=== PATIENT | male | born 1985 | race Caucasian/White ===

== ENCOUNTER 2023-01-07 18:00 | Emergency (ER) | payer OTHER, SELFPAY ==
--- NOTE | ~2023-01-07 | CT_ITS ---
EXAMINATION: CT cervical spine wo con DATE: 01/07/2023 20:17 INDICATION: TECHNIQUE: Computed tomography (CT) of the cervical spine was performed without intravenous contrast. Automated exposure control and iterative reconstruction technique were employed. Exam dose: 489.88 mGy-cm total exam DLP. COMPARISON: None FINDINGS: C1 and C2 are normally aligned and the odontoid process is intact. No fracture or dislocati on or locked facet or prevertebral soft tissue swelling. Cervical interspaces are preserved. IMPRESSION: Negative Reviewed, dictated and finalized at [facility]. Reviewed, dictated and finalized at location [facility]. IMPRESSION: Negative
--- NOTE | ~2023-01-07 | CT_ITS ---
EXAMINATION: CT chst ab pel joaquin gordon w DATE: 01/07/2023 20:19 INDICATION: Fall from ladder TECHNIQUE: Computed tomography (CT) of the chest, abdomen, and pelvis as well as thoracic and lumbar spine was performed without intravenous contrast. Automated exposure control and iterative reconstruc tion technique were employed. Exam dose: 1014.10 mGy-cm total exam DLP. COMPARISON: None FINDINGS: CHEST CT: Normal heart size. No pericardial or pleural effusion. No thoracic aortic aneurysm or dissection. No hilar or mediastinal mass lesion or lymphadenopathy. No pneumomediastinum or pneumothorax. No pulmonary infiltrate or consolidation or pulmonary mass lesion. ABDOMEN/PELVIS CT: The liver, gallbladder, bile ducts, spleen, pancreas, pancreatic duct, and adrenal glands and kidneys are unremarkable. Normal caliber of the abdominal aorta. No intraperitoneal or retroperitoneal or pelvic mass lesion or adenopathy or ascites. Status post appendectomy. Mild sigmoid colon diverticulosis; no CT evidence of diverticulitis. No bow el obstruction, bowel wall thickening, pneumatosis or intraperitoneal free air. No fractures of the chest abdomen and pelvis areas. Normal alignment of the thoracic and lumbar spine , without fracture. No spondylolisthesis. IMPRESSION: Negative Reviewed, dictated and finalized at [facility]. Reviewed, dictated and finalized at [facility]. IMPRESSION: Negative
--- NOTE | ~2023-01-07 | CT_ITS ---
EXAMINATION: CT brain wo con DATE: 01/07/2023 20:17 INDICATION: Fall from ladder TECHNIQUE: Computed tomography (CT) of the head was performed without intravenous contrast. The mA wa s adjusted according to patient size. Iterative reconstruction technique was employed. Exam dose: 60 5.33 mGy-cm total exam DLP. COMPARISON: None FINDINGS: No skull fracture. There is patchy opacification of ethmoid air cells bilaterally. Mucous retention cyst of each sphenoi d sinus. The included paranasal sinuses and mastoid air cells are otherwise unremarkable. No fracture or bone destruction of the cranial vault. There is intracranial mass lesion or hemorrhage or cerebrovascular accident. No midline shift or mass effect. Normal ventricular size. No subdural or epidural hematoma. IMPRESSION: No skull fracture or acute intracranial finding Paranasal sinus disease Reviewed, dictated and finalized at [facility]. Reviewed, dictated and finalized at location [facility].
[2023-01-07 18:37] VITALS: BP 139/99; PULSE 80; RESP 20; TEMP 36.5; O2SAT 97
--- NOTE | 2023-01-07 19:08 | ED.NECK ---
HPI - Neck Pain/Injury General Chief Complaint: Neck Pain/Injury Stated Complaint: neck pain r/t fall Time Seen by Provider: 01/07/23 18:53 Source: patient Mode of arrival: ambulatory Limitations: no limitations History of Present Illness HPI Narrative: This is a 37-year-old male that presents to the emergency department for neck pain after a fall 4 days ago. Reports he fell about 8 feet off of a ladder. Reports landing on his back. Reports since he has had neck, rib pain and back pain. Also reports headaches and vomiting. He does not believe that he hit his head. He did not lose consciousness. Denies vision changes, shortness of breath, abdominal pain, numbness or weakness. Related Data Allergies Allergy/AdvReac Type Severity Reaction Status Date / Time Penicillins Allergy Mild Verified 04/30/16 14:21 Review of Systems Review of Systems: CONSTITUTIONAL: Denies fever EYES: Denies visual changes CARDIOVASCULAR: Reports chest/rib pain RESPIRATORY: Denies dyspnea. GASTROINTESTINAL: Reports vomiting MUSCULOSKELETAL: Reports back pain, joint pain, and myalgia. NEUROLOGIC: Denies numbness, or weakness. All systems reviewed & are unremarkable except as noted in HPI and below PMFSH Past Medical History Medical History (Updated 01/07/23 @ 22:21 by Patricia Olvera PA-C) No active medical problems Social History Social History (Updated 01/07/23 @ 19:11 by Patricia Olvera PA-C) Substance use: never Exam Narrative: GENERAL: Well-appearing, well-nourished, and in no acute distress. HEAD: Normocephalic, atraumatic. EYES: PERRLA and EOMI. ENT: Nares clear, no rhinorrhea or epistaxis. Mucous membranes moist. Oropharynx without tonsillar hypertrophy exudate or other lesions. Bilateral TMs pearly francis non-bulging NECK: Supple. No adenopathy or masses. Tender to palpation of midline cervical spine CHEST: Clear to auscultation. No respiratory distress. No wheezes rales or rhonchi HEART: Regular rate and rhythm. No murmur heard. Normal peripheral pulses. ABDOMEN: Soft, nontender, nondistended, normal active bowel sounds. BACK: Tender to palpation of midline thoracic and lumbar spine EXTREMITIES: Normal range of motion. No edema. Strength equal in bilateral upper and lower extremities (5/5) SKIN: Warm, dry, no rash. NEURO: No focal deficits. Alert and oriented x3. Cranial nerves II through XII grossly intact PSYCH: Normal mood and affect Course Course Emergency Course: Patient was updated on work-up and agrees with plan of care Vital Signs Vital signs: Vital Signs Temperature 97.7 F 01/07/23 18:37 Pulse Rate 80 01/07/23 18:37 Respiratory Rate 20 01/07/23 18:37 Blood Pressure 139/99 H 01/07/23 18:37 Pulse Oximetry 97 01/07/23 18:37 Temperature 97.7 F 01/07/23 18:37 Pulse Rate 80 01/07/23 18:37 Respiratory Rate 20 01/07/23 18:37 Blood Pressure 139/99 H 01/07/23 18:37 Pulse Oximetry 97 01/07/23 18:37 MDM - Neck Pain/Injury MDM Narrative Medical decision making narrative: Patient presents to the emergency department after a fall from a ladder 4 days ago. Reporting neck pain, back pain, and rib pain. Patient is neurologically intact. CBC shows mild normocytic anemia with hemoglobin of 13.6. Metabolic panel without concerning findings. CT brain without acute findings. CT cervical spine without acute changes. CT chest/abdomen/pelvis/thoracic/lumbar spine also without acute findings. Patient was updated on work-up. Instructed on care of muscle strain. He is to follow-up with primary provider. He was given warnings to return to the ER Differential Diagnosis Differential diagnosis: Likely whiplash injury to neck, strain of neck muscle and other (vertebral fracture) Lab Data Attestation: I reviewed the patient's lab results. 01/07/23 19:19 01/07/23 19:19 Labs: Lab Results 01/07/23 Range/Units 19:19 WBC 8.1 (4.5-10.0) K/mm3
[2023-01-07 19:25] LABS: Basophils Percent Auto 0.5 % (0.2-1.2); Eosinophils Absolute Auto 0.5 K/mm3 (0-0.3); Eosinophils Percent Auto 6.7 % (0-4.4); Hematocrit 39.9 % (42.0-52.0); Hemoglobin 13.6 g/dL (14.0-18.0); Immature Granulocyte Absolute 0.02 K/mm3 (0.00-0.031); Immature Granulocyte Percent A 0.2 % (0-0.5); Lymphocytes Absolute Auto 3.83 K/mm3 (0.9-3.2); Lymphocytes Percent Auto 47.2 % (18.3-44.2); Mean Corpuscular HGB Conc 34.1 g/dl (32-36); Mean Corpuscular Hemoglobin 29.2 pg (26-34); Mean Corpuscular Volume 85.8 fl (80-100); Mean Platelet Volume 10.2 fl (7.4-10.4); Monocytes Absolute Auto 0.7 K/mm3 (0.1-0.6); Monocytes Percent Auto 8.1 % (2.6-8.5); Neutrophils Percent Auto 37.3 % (45.5-73.1); Platelet Count Result 307 k/mm3 (150-375); Red Blood Count 4.65 M/mm3 (4.6-6.20); Red Cell Distribution Width 13.2 % (11.5-14.5); White Blood Count 8.1 K/mm3 (4.5-10.0)
[2023-01-07 19:36] LABS: Alanine Aminotransferase 24 U/L (6-50); Albumin Level 4.8 g/dL (3.5-5.1); Alkaline Phosphatase 73 U/L (38-126); Anion Gap 8 mmol/L (8-16); Aspartate Amino Transferase 27 U/L (17-59); Bilirubin,Total 0.4 mg/dL (0.2-1.3); Blood Urea Nitrogen 18 mg/dL (9-20); Calcium 9.6 mg/dL (8.4-10.2); Carbon Dioxide 27 mmol/L (22-30); Chloride 102 mmol/L (98-107); Estimated CRCL calculation 142 ml/min; Estimated Glomerular Filt Rate > 60; Glucose 99 mg/dL (65-110); Potassium 3.9 mmol/L (3.4-5.0); Sodium 137 mmol/L (137-145)
[2023-01-07 19:41] LABS: Prothrombin Time 13.7 Seconds (11.1-14.7)
[2023-01-07 19:42] LABS: Partial Thromboplastin Time 35.2 SECONDS (22.3-36.8)
[2023-01-07 22:36] VITALS: BP 142/83; PULSE 74; RESP 17; O2SAT 100
== END 2023-01-07 22:38 | disposition home or self-care (01) ==
PROVIDERS: Emergency Provider Physician Assistant
DX: S16.1XXA Strain of muscle, fascia and tendon at neck level, initial encounter (principal); J32.9 Chronic sinusitis, unspecified; W11.XXXA Fall on and from ladder, initial encounter
CPT/HCPCS: 36415; 70450; 71260; 72125; 72129; 72132; 74177; 80053; 85025; 85610; 85730; 99284; L0140; Q9967

== ENCOUNTER 2024-02-25 16:29 | Emergency (ER) | payer OTHER, SELFPAY ==
--- NOTE | ~2024-02-25 | CT_ITS ---
CLINICAL INDICATION: Periumbilical pain COMPARISON: 01/07/2023. TECHNIQUE: Multiple contiguous axial images of the abdomen and pelvis were performed following the ad ministration of with 100 mL Omnipaque-350 intravenous contrast The dose-length product (DLP) was 379.67 mGy-cm. Automated exposure control and iterative reconstruction technique were employed. FINDINGS/OBSERVATIONS: Visualized lower thorax: The bilateral lung bases are clear. The heart is of normal size, without pericardial effusion. Small hiatal hernia is present. Liver: The liver is within the upper limits of normal for size measuring 19 cm in longitudinal dimension. Gallbladder and biliary system: The gallbladder is only minimally distended, and otherwise unremarkable. Pancreas: The pancreas enhances homogeneously without ductal dilatation. Spleen: The spleen enhances homogeneously and is within the upper limits of normal for size measuring 11 cm i n longitudinal dimension. Kidneys: The bilateral kidneys enhance symmetrically without hydronephrosis or renal calculi. Adrenal glands: Unremarkable. Gastrointestinal tract: Unremarkable. Appendix: Surgically absent. Vasculature: Unremarkable. No aneurysmal dilatation or significant stenosis. Lymph nodes: No pathologically enlarged or morphologically suspicious lymph nodes within the retroperitoneum or at the root of the mesentery. Pelvic structures: The bladder is distended, and otherwise unremarkable. The prostate gland is not enlarged and enhances heterogeneously. Body wall and musculoskeletal: Small fat-containing umbilical hernia. No significant degenerative disease within the lower thoracic or lumbosacral spine. IMPRESSION: Small fat-containing umbilical hernia Borderline hepatosplenomegaly Reviewed, dictated and finalized at location [facility]. MANAGER
[2024-02-25 16:31] VITALS: BP 137/86; PULSE 88; RESP 18; TEMP 36.4; O2SAT 97
--- NOTE | 2024-02-25 16:31 | ED.ABDPAIN ---
HPI - Abdominal Pain General Chief Complaint: Abdominal Pain <JENNIFER Santoyo Last Filed: 02/25/24 16:40> Stated Complaint: abd pain <JENNIFER Santoyo Last Filed: 02/25/24 16:40> Time Seen by Provider: 02/25/24 16:31 <JENNIFER Santoyo Last Filed: 02/25/24 16:40> Focused HPI: Patient is a 38 y/o male who presents to the ED with c/o periumbilical abd pain. Patient reports having pain fairly constantly over the past 8 days. States pain is significantly worse after eating. Otherwise denies significant aggravating or alleviating factors to the pain. He did try taking omeprazole once, but denied change in the pain. He does have history of acid reflux. Reported having vomiting 1 day of the past week but denies persistent nausea. Denies diarrhea, constipation, fevers, chest pain. GENERAL: Well-appearing, well-nourished, and in no acute distress. HEAD: Normocephalic, atraumatic. CHEST: Clear to auscultation. ?No respiratory distress. HEART: Regular rate and rhythm.? ABD: TTP in periumbilical region and just superior to umbilicus into epigastric region. Normoactive BS NEURO: ?Alert and oriented x3. Patient screened in triage and initial orders placed.? ?Additional care and disposition to be based upon?diagnostic testing and treatment. <JENNIFER Santoyo Last Filed: 02/25/24 16:40> Source: patient <JENNIFER Santoyo Last Filed: 02/25/24 16:40> Mode of arrival: ambulatory <JENNIFER Santoyo Last Filed: 02/25/24 16:40> Limitations: no limitations <JENNIFER Santoyo Last Filed: 02/25/24 16:40> Related Data Allergies/Adverse Reactions: Allergies Allergy/AdvReac Type Severity Reaction Status Date / Time Penicillins Allergy Mild Verified 04/30/16 14:21 <JENNIFER Santoyo Last Filed: 02/25/24 16:40> Review of Systems Review of Systems: CONSTITUTIONAL: Denies fever GASTROINTESTINAL: Reports abdominal pain, nausea, vomiting. Denies diarrhea. <Patricia Olvera PA-C - Last Filed: 02/25/24 19:50> All systems reviewed & are unremarkable except as noted in HPI and below <Patricia Olvera PA-C - Last Filed: 02/25/24 19:50> PMFSH Past Medical History Medical History: Medical History (Updated 02/25/24 @ 19:40 by Patricia Ovlera PA-C) No active medical problems <Rose Marie Reyes PA-C - Last Filed: 02/25/24 16:40> Social History Social History: Social History (Updated 02/25/24 @ 19:43 by Patricia Olvera PA-C) Substance use: current Substance use type: marijuana <Rose Marie Reyes PA-C - Last Filed: 02/25/24 16:40> Exam Narrative: GENERAL: Well-appearing, well-nourished, and in no acute distress. HEAD: Normocephalic, atraumatic. EYES: EOMI. CHEST: Clear to auscultation. No respiratory distress. No wheezes rales or rhonchi HEART: Regular rate and rhythm. No murmur heard. Normal peripheral pulses. ABDOMEN: Soft, nontender, nondistended, normal active bowel sounds. EXTREMITIES: Normal range of motion. No edema. SKIN: Warm, dry, no rash. NEURO: No focal deficits. Alert and oriented x3. PSYCH: Normal mood and affect <Patricia Olvera PA-C - Last Filed: 02/25/24 19:50> Course Course Emergency Course: Patient updated on his workup and agrees with plan of care <Patricia Olvera PA-C - Last Filed: 02/25/24 19:50> Vital Signs Vital signs: Vital Signs Temperature 97.6 F 02/25/24 16:31 Pulse Rate 88 02/25/24 16:31 Respiratory Rate 18 02/25/24 16:31 Blood Pressure 137/86 02/25/24 16:31 Pulse Oximetry 97 02/25/24 16:31 Oxygen Delivery Room Air 02/25/24 16:31 Temperature 97.6 F 02/25/24 16:31 Pulse Rate 75 02/25/24 18:30 Respiratory Rate 18 02/25/24 18:30 Blood Pressure 116/83 02/25/24 18:30 Pulse Oximetry 97 02/25/24 18:30 Oxygen Delivery Room Air 02/25/24 16:31 <Rose Marie Reyes PA-C - Last Filed: 02/25/24 16:40> Vital Signs Temperature 97.6 F 02/25/24 16:31 Pulse Rate 88 02/25/24 16:31 Respiratory Rate 18 02/25/24 16:31 Blood Pressure 137/86 02/25/24 16:31 Pulse Oximetry 97 02/25/24 16:31 Oxygen Delivery Room Air 02/25/24 16:31 Temperature 97.6 F 02/25/24 16:31 Pulse Rate 75 02/25/24 18:30 Respiratory Rate 18 02/25/24 18:30 Blood Pressure 116/83 02/25/24 18:30 Pulse Oximetry 97 02/25/24 18:30 Oxygen Delivery Room Air 02/25/24 16:31 <JENNIFER Saenz Last Filed: 02/25/24 19:50> MDM - Abdominal Pain MDM Narrative Medical decision making narrative: MSE by JACOBY in triage. <JENNIFER Santoyo Last Filed: 02/25/24 16:40> MSE by JACOBY in triage. Patient presents to the ER for epigastric abdominal pain. Ongoing over the last week. He is afebrile and nontoxic appearing. Vitals are stable. CBC without leukocytosis. Hemoglobin appears stable. Metabolic panel without concerning findings. Lipase is normal. CT abdomen/pelvis without acute findings. Shows an umbilical hernia. Patient resting comfortable with GI cocktail and protonix. Updated on his workup. Agrees with plan of care. Is to follow up with PCP. He was given warnings to return to the ER <JENNIFER Saenz Last Filed: 02/25/24 19:50> Differential Diagnosis Differential diagnosis: Likely diverticulitis, pancreatitis and other (biliary colic, GERD) <JENNIFER aSenz Last Filed: 02/25/24 19:50> Lab Data Attestation: I reviewed the patient's lab results. <Patricia Olvrea PA-C - Last Filed: 02/25/24 19:50> Result diagrams: 02/25/24 17:19 02/25/24 17:19 <Rose Marie Reyes PA-C - Last Filed: 02/25/24 16:40> Labs: Lab Results 02/25/24 02/25/24 Range/Units 17:19 17:20 WBC 7.8 (4.5-10.0) K/mm3 RBC 4.83 (4.6-6.20) M/mm3 Hgb 13.8 L (14.0-18.0) g/dL Hct 40.6 L (42.0-52.0) % MCV 84.1 (80-100) fl MCH 28.6 (26-34) pg MCHC 34.0 (32-36) g/dl RDW 13.2 (11.5-14.5) % Plt Count 339 (150-375) k/mm3 MPV 9.9 (7.4-10.4) fl Immature Gran % (Auto) 0.0 (0-0.5) % Neut % (Auto) 42.5 L (45.5-73.1) % Lymph % (Auto) 47.1 H (18.3-44.2) % [place] % (Auto) 7.1 (2.6-8.5) % Eos % (Auto) 2.7 (0-4.4) % Baso % (Auto) 0.6 (0.2-1.2) % Lymph # (Auto) 3.65 H (0.9-3.2) K/mm3 [place] # (Auto) 0.6 (0.1-0.6) K/mm3 Eos # (Auto) 0.2 (0-0.3) K/mm3 Baso # (Auto) 0.1 (0.0-0.1) K/mm3 Abs Immat Gran (auto) 0.00 (0.00-0.031) K/mm3 Absolute Neuts (auto) 3.3 (1.3-6.7) K/mm3 Absolute Nucleated RBC 0.000 (0.0-0.012) K/mm3 Nucleated RBC % 0.0 (0.0-0.2) % Sodium 137 (137-145) mmol/L Potassium 3.7 (3.4-5.0) mmol/L Chloride 98 (98-107) mmol/L Carbon Dioxide 27 (22-30) mmol/L Anion Gap 12 (4-12) mmol/L BUN 13 D (9-20) mg/dL Creatinine 0.90 (0.7-1.3) mg/dL Estim Creat Clear Calc 111 ml/min Estimated GFR > 60 (59 - ) Glucose 93 (65-110) mg/dL Calcium 10.1 (8.4-10.2) mg/dL Total Bilirubin 0.4 (0.2-1.3) mg/dL AST 23 (17-59) U/L ALT 20 (6-50) U/L Alkaline Phosphatase 70 (38-126) U/L Total Protein 9.0 H (6.3-8.2) g/dL Albumin 4.9 (3.5-5.1) g/dL Lipase 45 (23-300) U/L Urine Color Yellow (Yellow) Urine Appearance Clear (Clear) Urine pH 7.0 (5.0-9.0) Ur Specific [place] 1.009 (1.001-1.035) Urine Protein Negative (Negative) mg/dL Urine Glucose (UA) Negative (Negative) mg/dL Urine Ketones Negative (Negative) mg/dL Ur Blood (Man) Negative (Negative) Urine Nitrate Negative (Negative) Urine Bilirubin Negative (Negative) Urine Urobilinogen 1.0 (<2.0) mg/dL Leukocyte Esterase Rfl Negative (Negative) KRYSTLE/UL <Rose Marie Reyes PA-C - Last Filed: 02/25/24 16:40> Lab Results 02/25/24 02/25/24 Range/Units 17:19 17:20 WBC 7.8 (4.5-10.0) K/mm3 RBC 4.83 (4.6-6.20) M/mm3 Hgb 13.8 L (14.0-18.0) g/dL Hct 40.6 L (42.0-52.0) % MCV 84.1 (80-100) fl MCH 28.6 (26-34) pg MCHC 34.0 (32-36) g/dl RDW 13.2 (11.5-14.5) % Plt Count 339 (150-375) k/mm3 MPV 9.9 (7.4-10.4) fl Immature Gran % (Auto) 0.0 (0-0.5) % Neut % (Auto) 42.5 L (45.5-73.1) % Lymph % (Auto) 47.1 H (18.3-44.2) % [place] % (Auto) 7.1 (2.6-8.5) % Eos % (Auto) 2.7 (0-4.4) % Baso % (Auto) 0.6 (0.2-1.2) % Lymph # (Auto) 3.65 H (0.9-3.2) K/mm3 [place] # (Auto) 0.6 (0.1-0.6) K/mm3 Eos # (Auto) 0.2 (0-0.3) K/mm3 Baso # (Auto) 0.1 (0.0-0.1) K/mm3 Abs Immat Gran (auto) 0.00 (0.00-0.031) K/mm3 Absolute Neuts (auto) 3.3 (1.3-6.7) K/mm3 Absolute Nucleated RBC 0.000 (0.0-0.012) K/mm3 Nucleated RBC % 0.0 (0.0-0.2) % Sodium 137 (137-145) mmol/L Potassium 3.7 (3.4-5.0) mmol/L Chloride 98 (98-107) mmol/L Carbon Dioxide 27 (22-30) mmol/L Anion Gap 12 (4-12) mmol/L BUN 13 D (9-20) mg/dL Creatinine 0.90 (0.7-1.3) mg/dL Estim Creat Clear Calc 111 ml/min Estimated GFR > 60 (59 - ) Glucose 93 (65-110) mg/dL Calcium 10.1 (8.4-10.2) mg/dL Total Bilirubin 0.4 (0.2-1.3) mg/dL AST 23 (17-59) U/L ALT 20 (6-50) U/L Alkaline Phosphatase 70 (38-126) U/L Total Protein 9.0 H (6.3-8.2) g/dL Albumin 4.9 (3.5-5.1) g/dL Lipase 45 (23-300) U/L Urine Color Yellow (Yellow) Urine Appearance Clear (Clear) Urine pH 7.0 (5.0-9.0) Ur Specific [place] 1.009 (1.001-1.035) Urine Protein Negative (Negative) mg/dL Urine Glucose (UA) Negative (Negative) mg/dL Urine Ketones Negative (Negative) mg/dL Ur Blood (Man) Negative (Negative) Urine Nitrate Negative (Negative) Urine Bilirubin Negative (Negative) Urine Urobilinogen 1.0 (<2.0) mg/dL Leukocyte Esterase Rfl Negative (Negative) KRYSTLE/UL <Patricia Olvera PA-C - Last Filed: 02/25/24 19:50> Imaging Data Radiologist's impression: ITS Impressions Abdomen/Pelvis CT 02/25/24 18:28 IMPRESSION: Small fat-containing umbilical hernia Borderline hepatosplenomegaly <JENNIFER Santoyo Last Filed: 02/25/24 16:40> ITS Impressions Abdomen/Pelvis CT 02/25/24 18:28 IMPRESSION: Small fat-containing umbilical hernia Borderline hepatosplenomegaly <JENNIFER Saenz Last Filed: 02/25/24 19:50> Critical Care Time Critical Care Time Critical Care Time: No <JENNIFER Saenz Last Filed: 02/25/24 19:50> Discharge Plan Discharge Clinical Impression: Abdominal pain, epigastric <JENNIFER Santoyo Last Filed: 02/25/24 16:40> Patient Disposition: Home, Self-Care <JENNIFER Santoyo Last Filed: 02/25/24 16:40> Condition: Improved <JENNIFER Santoyo Last Filed: 02/25/24 16:40> Instructions: Epigastric Pain (ED) <JENNIFER Santoyo Last Filed: 02/25/24 16:40> Additional Instructions: Return to the ER if you experience fever, abdominal pain with nausea and vomiting, you are unable to keep down liquids or solids, or any other symptoms that are concerning to you Remain well hydrated. Avoid spicy/acidic foods. Avoid eating just before bedtime. Avoid alcohol. Avoid anti-inflammatories. Take Protonix daily Follow up with primary care doctor <Rose Marie Reyes PA-C - Last Filed: 02/25/24 16:40> Prescriptions: New pantoprazole 20 mg tablet,delayed release (DR/EC) 20 mg PO HS 28 Days Qty: 28 0RF No Action cyclobenzaprine 10 mg tablet 10 mg PO TID PRN (Reason: muscle spasm) Qty: 14 0RF <Rose Marie Reyes PA-C - Last Filed: 02/25/24 16:40> Follow-up/Referrals: Jaylen,Piedad Singh MD [Primary Care Provider] - <Rose Marie Reyes PA-C - Last Filed: 02/25/24 16:40>
[2024-02-25 17:26] LABS: Basophils Absolute Auto 0.1 K/mm3 (0.0-0.1); Basophils Percent Auto 0.6 % (0.2-1.2); Eosinophils Absolute Auto 0.2 K/mm3 (0-0.3); Eosinophils Percent Auto 2.7 % (0-4.4); Hematocrit 40.6 % (42.0-52.0); Hemoglobin 13.8 g/dL (14.0-18.0); Lymphocytes Absolute Auto 3.65 K/mm3 (0.9-3.2); Lymphocytes Percent Auto 47.1 % (18.3-44.2); Mean Corpuscular Hemoglobin 28.6 pg (26-34); Mean Corpuscular Volume 84.1 fl (80-100); Mean Platelet Volume 9.9 fl (7.4-10.4); Monocytes Absolute Auto 0.6 K/mm3 (0.1-0.6); Monocytes Percent Auto 7.1 % (2.6-8.5); Neutrophils Absolute Auto 3.3 K/mm3 (1.3-6.7); Neutrophils Percent Auto 42.5 % (45.5-73.1); Platelet Count Result 339 k/mm3 (150-375); Red Blood Count 4.83 M/mm3 (4.6-6.20); Red Cell Distribution Width 13.2 % (11.5-14.5); White Blood Count 7.8 K/mm3 (4.5-10.0)
[2024-02-25 17:28] LABS: Add Urine Microscopic? NO; Appearance Urine Clear (Clear); Bilirubin Urine Negative (Negative); Blood Urine Negative (Negative); Color Urine Yellow (Yellow); Glucose Urine UA Negative (Negative); Ketones Urine Negative (Negative); Leukocyte Esterase Ur Negative LEU/UL (Negative); Nitrate Urine Negative (Negative); Protein Urine Negative (Negative); Specific Grav Ur 1.009 (1.001-1.035)
[2024-02-25 17:30] VITALS: BP 125/80; PULSE 77; RESP 18; O2SAT 98
[2024-02-25 17:35] LABS: Alanine Aminotransferase 20 U/L (6-50); Albumin Level 4.9 g/dL (3.5-5.1); Alkaline Phosphatase 70 U/L (38-126); Anion Gap 12 mmol/L (4-12); Aspartate Amino Transferase 23 U/L (17-59); Bilirubin,Total 0.4 mg/dL (0.2-1.3); Blood Urea Nitrogen 13 mg/dL (9-20); Calcium 10.1 mg/dL (8.4-10.2); Carbon Dioxide 27 mmol/L (22-30); Chloride 98 mmol/L (98-107); Estimated CRCL calculation 111 ml/min; Estimated Glomerular Filt Rate > 60; Glucose 93 mg/dL (65-110); Lipase 45 U/L (23-300); Potassium 3.7 mmol/L (3.4-5.0); Sodium 137 mmol/L (137-145)
[2024-02-25] MEDS: PANTOPRAZOLE SODIUM IV 40 MG VIAL IV PUSH (17:45)
[2024-02-25] MEDS: BELLADONNA ALK/PHENOB ELIX 10 ML, MAG HYDROX/ALUMINUM HYD/SIMETH 30 ML, LIDOCAINE HCL 2... PO (17:45)
[2024-02-25 18:30] VITALS: BP 116/83; PULSE 75; RESP 18; O2SAT 97
[2024-02-25 19:50] VITALS: BP 131/94; PULSE 70; RESP 20; TEMP 36.1; O2SAT 100
== END 2024-02-25 20:14 | disposition home or self-care (01) ==
PROVIDERS: Physician Assistant; Emergency Provider Physician Assistant; PCP Internal Medicine Gastroenterology
DX: R10.13 Epigastric pain (principal); K42.9 Umbilical hernia without obstruction or gangrene
CPT/HCPCS: 36415; 74177; 80053; 81003; 83690; 85025; 96374; 99284; A9270; J2470; Q9967

== ENCOUNTER 2024-03-27 13:16 | Emergency (ER) | payer OTHER, SELFPAY ==
--- NOTE | ~2024-03-27 | XR_ITS ---
XR chest 2V DATE: 03/27/2024 16:21 INDICATION: Cough, sore throat TECHNIQUE: PA and lateral views COMPARISON: None FINDINGS: Normal heart size. No hilar or mediastinal enlargement. No pulmonary infiltrate or consolid ation, pleural effusion or pulmonary vascular congestion or pneumothorax is detected. Minimal levoscoliosis of the thoracic spine. IMPRESSION: No active cardiopulmonary disease Reviewed, dictated and finalized at location A. EMIOLOGY INTERN
[2024-03-27 13:24] VITALS: BP 124/79; PULSE 98; RESP 18; TEMP 36.4; O2SAT 97
[2024-03-27 15:58] LABS: Influenza A QL RT-PCR Negative (Negative); Influenza B QL RT-PCR Negative (Negative); RSV RNA, RT-PCR Negative (Negative); SARS-CoV-2 RNA PCR Negative (Negative)
[2024-03-27 16:30] LABS: Strep Group A RT-PCR NOT DETECTED (Negative)
[2024-03-27] MEDS: ACETAMINOPHEN 500 MG TABLET 1000 MG PO (16:50)
[2024-03-27] MEDS: IBUPROFEN 600 MG TABLET PO (16:51)
[2024-03-27] MEDS: PSEUDOEPHEDRINE HCL 30 MG TABLET 60 MG PO (16:51)
--- NOTE | 2024-03-27 17:11 | ED.URI ---
HPI - URI/Sore Throat General Chief Complaint: Upper Respiratory Infection Stated Complaint: cough/throat pain Time Seen by Provider: 03/27/24 15:29 Source: patient Mode of arrival: ambulatory Limitations: no limitations History of Present Illness HPI Narrative: Patient is a 38-year-old male who presents the ED with report of congestion/URI symptoms. Patient reports having a mild productive cough with nasal congestion, sore throat, subjective fevers since yesterday. States his son has been sick with similar symptoms. Denies chest pain or shortness of breath. Patient has not tried anything for her symptoms. Related Data Allergies Allergy/AdvReac Type Severity Reaction Status Date / Time Penicillins Allergy Mild Unknown Verified 03/27/24 13:18 Review of Systems Review of Systems: All systems reviewed & are unremarkable except as noted in HPI. All systems reviewed & are unremarkable except as noted in HPI and below PMFSH Past Medical History Medical History No active medical problems Social History Social History Substance use: current Substance use type: marijuana Exam Narrative: GENERAL: Well appearing, well-nourished, non-toxic, in no acute distress. HEAD: Normocephalic, atraumatic. RESPIRATORY: Airway patent, respirations nonlabored. Clear to auscultation bilaterally, no rales, rhonchi, wheezing. No significant focal lung sounds. CARDIOVASCULAR: Regular rate and rhythm without murmurs, rubs, or gallops. MUSCULOSKELETAL: Moves all extremities. No gross deformities. SKIN: Warm, dry, normal color. NEURO: A&O X3. Speech clear. PSYCHIATRIC: Appropriate mood and affect. Normal interaction. Course Vital Signs Vital signs: Vital Signs Temperature 97.5 F L 03/27/24 13:24 Pulse Rate 98 03/27/24 13:24 Respiratory Rate 18 03/27/24 13:24 Blood Pressure 124/79 03/27/24 13:24 Pulse Oximetry 97 03/27/24 13:24 Oxygen Delivery Room Air 03/27/24 13:24 Temperature 97.5 F L 03/27/24 13:24 Pulse Rate 97 03/27/24 17:27 Respiratory Rate 16 03/27/24 17:27 Blood Pressure 139/72 03/27/24 17:27 Pulse Oximetry 97 03/27/24 17:27 Oxygen Delivery Room Air 03/27/24 15:58 MDM - URI/Sore Throat MDM Narrative Medical decision making narrative: Patient presented to ED with URI symptoms that began yesterday. Vital signs are stable upon arrival. Patient is afebrile. Viral swabs are negative. Strep negative. Chest x-ray is clear. Discussed lab and imaging findings with patient, likelihood of viral URI, discussed management of such. Will prescribe Tessalon Perles for home. Given return precautions. Patient discharged in stable condition. Medical Records Attestation: I reviewed the patient's medical records. Lab Data Attestation: I reviewed the patient's lab results. Labs: Lab Results 03/27/24 03/27/24 Range/Units 15:16 15:59 Influenza A (RT-PCR) Negative (Negative) Influenza B (RT-PCR) Negative (Negative) RSV (RT-PCR) Negative (Negative) SARS-CoV-2 RNA (RT-PCR) Negative (Negative) Group A Strep (PCR) Not detected (Negative) Imaging Data Attestation: I personally reviewed and interpreted this imaging study as follows: Radiologist's impression: ITS Impressions Chest X-Ray 03/27/24 16:34 IMPRESSION: No active cardiopulmonary disease Discharge Plan Discharge Clinical Impression: Upper respiratory infection Patient Disposition: Home, Self-Care Condition: Stable Instructions: Antibiotic Form, Rhinosinusitis (ED), Viral Syndrome (ED), Cold Symptoms (ED) Additional Instructions: Your testing for influenza, RSV, COVID, strep were negative. Your chest x-ray did not show any evidence of pneumonia. You likely have an upper respiratory infection. Recommend vaseline to nasal cavity at night to prevent nose from drying out. Utilize Tessalon Perles as needed for cough. Recommend Tylenol and Ibuprofen for discomfort and/or fevers. Recommend [id number] cough and cold medicines for symptom relief, Delsym, Mucinex, DayQuil, NyQuil, Sudafed, Robitussin, TheraFlu. Follow with primary care doctor for further evaluation. Return to the ED if you experience worsening or severe symptoms, chest pain, difficulty breathing, unable to keep down food or drink, severe pain, or any other symptoms of concern. Prescriptions: New benzonatate 200 mg capsule 200 mg PO TID PRN (Reason: cough) Qty: 15 0RF No Action cyclobenzaprine 10 mg tablet 10 mg PO TID PRN (Reason: muscle spasm) Qty: 14 0RF pantoprazole 20 mg tablet,delayed release (DR/EC) 20 mg PO HS 28 Days Qty: 28 0RF Follow-up/Referrals: Kerline Salas APRN [Primary Care Provider] - Time of Disposition: 17:14
[2024-03-27 17:27] VITALS: BP 139/72; PULSE 97; RESP 16; O2SAT 97
== END 2024-03-27 17:28 | disposition home or self-care (01) ==
PROVIDERS: Emergency Medicine; Emergency Provider Physician Assistant; PCP Nurse Practitioner Adult Health
DX: J06.9 Acute upper respiratory infection, unspecified (principal); Z20.822 Contact with and (suspected) exposure to COVID-19
CPT/HCPCS: 71046; 87637; 87651; 99283; A9270

== ENCOUNTER 2025-02-14 15:37 | Emergency (ER) | payer OTHER, SELFPAY ==
[2025-02-14 15:55] VITALS: BP 123/84; PULSE 84; RESP 15; TEMP 36.8; O2SAT 98
--- NOTE | 2025-02-14 16:44 | ED.GENADULT ---
HPI - General Adult General Chief complaint: Urogenital-Male Stated complaint: uti/pain inside rectum for one week Time Seen by Provider: 02/14/25 16:02 History of Present Illness HPI narrative: 39-year-old male present to the emergency department for evaluation for pain at his perineum. Patient describes the burning pain that does radiate to his penis. Patient states the pain is not worsened with had a bowel movement. Patient denies any concern for STI. Patient states he was sexually active with his a few nights ago and felt that this did feel differently than normal. Patient does have prior history of internal hemorrhoid surgery. No prior history of prostatitis. Patient does describe a change in sensation with urination. Patient denies any blood in his ejaculate or in his urine. Patient denies any rectal penetration. Related Data Allergies Allergy/AdvReac Type Severity Reaction Status Date / Time Penicillins Allergy Mild Unknown Verified 03/27/24 13:18 Review of Systems Review of Systems: All systems reviewed & are unremarkable except as noted in HPI and below PMFSH Past Medical History Medical History No active medical problems Social History Social History Substance use: current Substance use type: marijuana Exam Narrative: APPEARANCE: Well appearing, no pain, no distress, well-nourished. HEAD: normocephalic, atraumatic. EYES: PERRLA/EOMI, conjunctivae clear. NOSE: Normal no drainage EARS:TMS clear with good light reflex. THROAT: Pharynx clear, no exudate. NECK: Supple. No adenopathy, no masses. RESPIRATORY: Airway patent, respirations nonlabored. Clear to auscultation bilaterally, no rales, rhonchi, wheezing. CARDIOVASCULAR: Regular rate and rhythm without murmurs rubs or gallops. ABDOMINAL: Soft, nontender, nondistended, normal bowel sounds MUSCULOSKELETAL: Moves all extremities. Strength/ROM intact, No edema, No calf tenderness. NEURO: Alert. Cranial nerves II through XII intact. Good gait. Good coordination SKIN: Warm, dry. Normal Color Genital exam: tenderness to perineum Course Vital Signs Vital signs: Vital Signs Temperature 98.2 F 02/14/25 15:55 Pulse Rate 84 02/14/25 15:55 Respiratory Rate 15 02/14/25 15:55 Blood Pressure 123/84 02/14/25 15:55 Pulse Oximetry 98 02/14/25 15:55 Oxygen Delivery Room Air 02/14/25 15:55 Temperature 98.2 F 02/14/25 15:55 Pulse Rate 84 02/14/25 15:55 Respiratory Rate 15 02/14/25 15:55 Blood Pressure 123/84 02/14/25 15:55 Pulse Oximetry 98 02/14/25 15:55 Oxygen Delivery Room Air 02/14/25 15:55 Medical Decision Making MDM Narrative Medical decision making narrative: 39-year-old male presents to the emergency department for evaluation for some pain with urination and pain at the perineum. UA was negative for infection or hematuria. Low concern for urinary tract infection or ureteral calculi patient had low concern for STI. Patient did have external tenderness to the perineum with no evidence of cellulitis. Patient was treated for prostatitis and started on IM Rocephin in the emergency department along with doxycycline discharged home with 14 days of doxycycline. Patient was updated on reasons to return to the emergency department including urinary hesitation fever or worsening symptoms. Patient was also encouraged close follow-up with Urology. Patient preferred not to wait for his gonorrhea or chlamydia results. Patient was treated with 500 mg of IM Rocephin along with 14 days of doxy b.i.d. regardless of the results. Differential Diagnosis Differential Diagnosis: Gonorrhea, chlamydia, urinary tract infection, ureteral calculi, prostatitis Vital Signs Vital Signs: Vital Signs Temperature 98.2 F 02/14/25 15:55 Pulse Rate 84 02/14/25 15:55 Respiratory Rate 15 02/14/25 15:55 Blood Pressure 123/84 02/14/25 15:55 Pulse Oximetry 98 02/14/25 15:55 Oxygen Delivery Room Air 02/14/25 15:55 Temperature 98.2 F 02/14/25 15:55 Pulse Rate 84 02/14/25 15:55 Respiratory Rate 15 02/14/25 15:55 Blood Pressure 123/84 02/14/25 15:55 Pulse Oximetry 98 02/14/25 15:55 Oxygen Delivery Room Air 02/14/25 15:55 Lab Data Lab results reviewed: Yes I reviewed the patient's lab results. Labs: Lab Results 02/14/25 Range/Units 16:41 Urine Color Yellow (Yellow) Urine Appearance Clear (Clear) Urine pH 6.5 (5.0-9.0) Ur Specific [place] 1.020 (1.001-1.035) Urine Protein Negative (Negative) mg/dL Urine Glucose (UA) Negative (Negative) mg/dL Urine Ketones Negative (Negative) mg/dL Ur Blood (Man) Negative (Negative) Urine Nitrate Negative (Negative) Urine Bilirubin Negative (Negative) Urine Urobilinogen 1.0 (<2.0) mg/dL Leukocyte Esterase Rfl Negative (Negative) KRYSTLE/UL C. trachomatis (PCR) Pending N. gonorrhoeae (PCR) Pending Discharge Plan Discharge Clinical Impression: Prostatitis Patient Disposition: Home Condition: Stable Instructions: Antibiotic Form, Prostatitis (ED) Additional Instructions: Have close follow-up with your primary care physician. Have close follow-up with Urology. Antibiotics as directed until completed. If you have any worsening symptoms then please call or return to the emergency department Patient Language: Khmer Prescriptions: New doxycycline monohydrate 100 mg capsule 100 mg PO BID 14 Days Qty: 28 0RF No Action cyclobenzaprine 10 mg tablet 10 mg PO TID PRN (Reason: muscle spasm) Qty: 14 0RF benzonatate 200 mg capsule 200 mg PO TID PRN (Reason: cough) Qty: 15 0RF pantoprazole 20 mg tablet,delayed release (DR/EC) 20 mg PO HS 28 Days Qty: 28 0RF Follow-up/Referrals: Kaiden Baumann MD [Physician, Pediatric Emergency Medicine] Kerline Salas APRN [Primary Care Provider, Family Practice]
[2025-02-14] MEDS: DOXYCYCLINE HYCLATE 100 MG TABLET PO (17:07)
[2025-02-14] MEDS: cefTRIAXone 1 GM VIAL 0.5 GM IM (17:09)
[2025-02-14] MEDS: LIDOCAINE 1% LOCAL INJ 10 ML VIAL (17:10)
[2025-02-14 17:11] LABS: Add Urine Microscopic? NO; Appearance Urine Clear (Clear); Glucose Urine UA Negative (Negative); Leukocyte Esterase Ur Negative LEU/UL (Negative); Nitrate Urine Negative (Negative); Specific Grav Ur 1.020 (1.001-1.035)
--- OUTSIDE RECORDS SUMMARY | 2025-02-14 17:34 | XMS_ITS | Data Portability ---
Author Organization [facility], Main Office Address [address] [place] [id number] Assessment No assessment recorded. Plan of Treatment Reminders Order Date Submit Date Provider Last Modified By Organization Details Last Modified Time Details Appointments None record ed. Lab None record ed. Referral None record ed. Procedures None record ed. Surgeries None record ed. Imaging None record ed. Medication Orders None record ed. Patient TargetsNo targets recorded. Patient InstructionsNo instructions recorded. Reason for Referral None Reported. 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 Negat alejandra resul ts shoul d be treat ed as presu mptiv e and, if incon siste nt with clini makenzie signs and sympt oms neces vince for patie nt manag ement , shoul d be teste d with diffe rent autho rized or clear ed molec ular tests . Negat alejandra resul ts do not precl ude SARS- Co-V- 2 infec tion and shoul d not be used as the sole basis for patie nt manag ement decis ions. Negat alejandra resul ts shoul d be consi dered in the ann xt of a patie nt's recen t expos ures, histo ry and the prese nce of clini makenzie signs and sympt oms consi stent with COVID -19. Pleas e revie w the Fact Sheet s for [facility] provi ders and valeriee nts at the [facility] te: https ://gl niko into care. abbot patel/en/ produ ct-de tails /id-n ow-co vid-1 9.htm l Metho dolog y: Isoth ermal Nucle ic Acid Ampli ficat ion Not Available [facility] (Lab) [address] [place], [address], 08/10/2020 14:43:57 Result Notes None recorded. Procedures Surgical History Date Name Laterality Status Provider Name and Address Organization Details Recorded Time 08/14/19 21 Hemorrhoidectomy completed Not Available [facility] 04/2022 22:42:51 Appendectomy completed Not Available [facility] 06/18/2022 22:42:51 Imaging Results None recorded. Procedure Notes None recorded. Medical Equipment None Reported. Medications Name Sig Start Date Stop Date Status Note LastModified by Organization Details LastModified Time azithromycin 250 mg tablet active Not Available Not Availabl e Not Available oxycodone-julien taminophen 5 mg-325 mg tablet active Not Available Not Available Not Available ferrous sulfate 325 mg (65 mg iron) tablet TAKE 1 TABLET BY MOUTH EVERY DAY active Not Available Not Available No t Available docusate sodium 100 mg capsule TAKE 1 CAPSULE BY MOUTH EVERY DAY active Not Available Not Available No t Available ondansetron 4 mg disintegratin g tablet active Not Available Not Available Not Available Suprep Bowel Prep Kit 17.5 gram-3.13 gram-1.6 gram oral solution MIX AND DRINK 1 BOTTLE AT 6 PM THE NIGHT BEFORE PROCEDURE, AND REPEAT 4 HOURS BEFORE PROCEDURE active Not Available Not Available No t Available Vitals Date Recorded Body mass index (BMI) Body height Oxygen saturation Oxygen saturation in Arterial blood by Pulse oximetry Heart rate Respiratory rate Body temperature Body weight Systolic And Diastolic Provider Name and Address Organization Details Last Updated DateTime 1 25.2 kg/m2 185.42 cm 97 % 97 % 95 /min 16 /min 98.3 [degF] 59464.1 4 g 110/80 mm[Hg] Not Available [facility] 3 22:43:04 Date Recorded Body mass index (BMI) Body height Heart rate Respiratory rate Body temperature Body weight Systolic And Diastolic Provider Name and Address Organization Details Last Updated DateTime 1 25.2 kg/m2 185.42 cm 86 /min 14 /min 98.6 [degF] 02637.1 4 g 110/80 mm[Hg] Not Available [facility] 3 22:43:04 Social History None recorded. Functional Status None recorded. Mental Status None recorded. Family History Relationship Description Onset Age of this Age Resolved Age Notes LastModified by Organization Details LastModified Time Father Diabetes mellitus [id number] Not available 06/18/2022 22:42:52 Mother Diabetes mellitus Diabet ic [id number] Not available 06/18/2022 22:42:52 Maternal Grandfather Diabetes mellitus Heart diseas e [id number] Not available 06/18/2022 22:42:52 Medical History Condition Response GERD/NAUSEA Y Past Encounters Encounter ID Performer Location Encounter Start Date Encounter Closed Date Diagnosis/Indication Diagnosis SNOMED-CT Code Diagnosis ICD10 Code Diagnosis IMO Codes Diagnosis Note [id number] Aleks chris MD [facility] General Surgery [address] [phone] 08/02/2020 00:00:00 08/02/2020 13:59:54 [id number] Aleks chris MD [facility] General Surgery [address] [phone] 08/21/2020 00:00:00 08/21/2020 13:21:30 Health Concerns Section Related Observation LastModified by Organization Detai ls LastModified Time None Recorded Concern Status LastModified by Organization Details LastModified Time None Recorded Advance Directives Directive None Recorded Payers Insurance Date Sequence Insurance Name Policy Number Policy Jean Covered Member ID Jean Member ID Guarantor Name 05/02/2024 1 [employer] [facility] ON OR AFTER 03/20/2020 (MEDICAID REPLACEMENT - HMO) Jamison Cole [id number] Jamison Cole
--- OUTSIDE RECORDS SUMMARY | 2025-02-14 17:34 | XMS_ITS | Data Portability ---
Author Organization [facility] MARYNghia Address [address] [place] [address] Assessment No assessment recorded. Plan of Treatment Reminders Order Date Submit Date Provider Last Modified By Organization Details Last Modified Time Details Appointments None recorded. Lab vitamin D, 25-hydrox y, total, serum 2021 CHRISTOPHER LUISA, [address] [place], [place] [address]dora Lepe, [address], [place], [address], 08:17:43 erythrocy te sedimenta tion rate by aidee n method 2021 CHRISTOPHER LUISA, [address] [place], [place] [address]irina Lepe, [address], [place], [address], 08:17:42 CMP, serum or plasma 2021 CHRISTOPHER LABJOSE LUIS, [address] [place], [place] [address]constantino Lepe, [address], [place], [address], 08:17:41 CBC 2021 CHRISTOPHERFELECIA MORAN, [address] [place], [place] [address]cocounc healthirina Lepe, [address], [place], [address], 08:17:43 Referral otolaryng ologist referral 2021 [email or web address] Sigala MD, [address], [address], [place], [address], 2 11:46:30 cardiolog ist referral 2021 022 [facility], [address], [address], [place], [address], 3 13:56:31 sleep medicine referral 2021 022 [facility], [address], [place], [address], 2 10:58:51 Procedures home sleep testing (PROC) 2022 023 [facility] (Surgery Sched), [address] [place], [address], 4 13:34:17 Surgeries None recorded. Imaging XR, sinuses, paranasal [address] ([facility] Scheduling), [address] [place], [address], 2 11:46:31 XR, lumbar spine 2021 022 [facility] ([facility] Scheduling), [address] [place], [address], 2 11:03:09 Medication Orders omeprazol e 20 mg capsule,d elayed release 2021 022 [facility]/Pharmacy #[id number], [address], [place], [address], 2 15:30:24 ondansetr on 4 mg disintegr ating tablet 2021 [facility]/Pharmacy #[id number], [address], [place], [address], 2 15:30:25 Patient TargetsNo targets recorded. Patient Instructions Encounter Date Encounter Id Patient Instructions Last Modified By Organization Details Last Modified Time 01/08/2022 [id number] back pain: care instructions [email or web address] Not available 01/08/2022 15:30:11 Reason for Referral Manuscript Reader Referral fo r Loss of sense of smell Referring Physician: Piedad York, Internal Medicine, Encounter Date: 02/13/2022 Supervisor Type Photography Referral for At ypical chest pain Atypical CP Referring Physician: Piedad York, Internal Medicine, Encounter Date: 02/13/2022 Sleep Medicine Referral for Sleep disorder Disturbed sleep pattern Referring Physician: Piedad York, Internal Medicine, Encounter Date: 02/13/2022 Results Created Date Observation Date Name Description Value Unit Range Abnormal Flag Note LastModifiedBy Organization Detail LastModifiedTime 01/09/20 22 01/09/2022 COMP. METAB OLIC PANEL (14) glucose 104 mg/dL 65-99 above high normal Eff ectiv e Septe mber 2021 Gluco se refer ence* * inter jennie will be mackay ing to: 70 - 99 Not Available [facility] ([facility]) [address] [place], [address], 01/09/2022 08:17:41 01/09/20 22 01/09/2022 COMP. METAB OLIC PANEL (14) BUN 17 mg/dL 6-20 Not Available [facility] ([facility]) [address] [place], [address], 01/09/2022 08:17:41 01/09/20 22 01/09/2022 COMP. METAB OLIC PANEL (14) creatinine 0.82 mg/dL 0.76-1 .27 Not Available [facility] ([facility]) [address] [place], [address], 01/09/2022 08:17:41 01/09/20 22 01/09/2022 COMP. METAB OLIC PANEL (14) eGFR 117 mL/mi n/1.7 3 >59 Not Available [facility] ([facility]) [address] [facility], [place], [address], 01/09/2022 08:17:41 01/09/20 22 01/09/2022 COMP. METAB OLIC PANEL (14) BUN/creatini ne ratio 21 9-20 above high normal Not Available [facility] ([facility]) [address] [facility] [place], [address], 01/09/2022 08:17:41 01/09/20 22 01/09/2022 COMP. METAB OLIC PANEL (14) sodium 138 mmol/ L 134-14 4 Not Available [facility] ([facility]) [address] [facility] [place], [address], 01/09/2022 08:17:41 01/09/20 22 01/09/2022 COMP. METAB OLIC PANEL (14) potassium 4.3 mmol/ L 3.5-5. 2 Not Available [facility] ([facility]) [address] [facility], [place], [address], 01/09/2022 08:17:41 01/09/20 22 01/09/2022 COMP. METAB OLIC PANEL (14) chloride 101 mmol/ L 96-106 Not Available [facility] ([facility]) [address] [facility] [place], [address], 01/09/2022 08:17:41 01/09/20 22 01/09/2022 COMP. METAB OLIC PANEL (14) carbon dioxide, total 24 mmol/ L 20-29 Not Available [facility] ([facility]) [address] [facility] [place], [address], 01/09/2022 08:17:41 01/09/20 22 01/09/2022 COMP. METAB OLIC PANEL (14) calcium 10.0 mg/dL 8.7-10 .2 Not Available [facility] ([facility]) [address] [facility] [place], [address], 01/09/2022 08:17:41 01/09/20 22 01/09/2022 COMP. METAB OLIC PANEL (14) protein, total 7.4 g/dL 6.0-8. 5 Not Available [facility] ([facility]) [address], [place], [address], 01/09/2022 08:17:41 01/09/20 22 01/09/2022 COMP. METAB OLIC PANEL (14) albumin 5.1 g/dL 4.0-5. 0 above high normal Not Available [facility] ([facility]) [address], [place], [address], 01/09/2022 08:17:41 01/09/20 22 01/09/2022 COMP. METAB OLIC PANEL (14) globulin, total 2.3 g/dL 1.5-4. 5 Not Available [facility] ([facility]) [address], [place], [address], 01/09/2022 08:17:41 01/09/20 22 01/09/2022 COMP. METAB OLIC PANEL (14) A/G ratio 2.2 1.2-2. 2 Not Available [facility] ([facility]) [address], [place], [address], 01/09/2022 08:17:41 01/09/20 22 01/09/2022 COMP. METAB OLIC PANEL (14) bilirubin, total 0.4 mg/dL 0.0-1. 2 Not Available [facility] ([facility]) [address], [place], [address], 01/09/2022 08:17:41 01/09/20 22 01/09/2022 COMP. METAB OLIC PANEL (14) alkaline phosphatase 70 IU/L 44-121 Not Available [facility] ([facility]) [address], [place], [address], 01/09/2022 08:17:41 01/09/20 22 01/09/2022 COMP. METAB OLIC PANEL (14) AST (SGOT) 15 IU/L 0-40 Not Available [facility] ([facility]) [address] [facility] [place], [address], 01/09/2022 08:17:41 01/09/20 22 01/09/2022 COMP. METAB OLIC PANEL (14) ALT (SGPT) 15 IU/L 0-44 Not Available [facility] ([facility]) [address] [facility], [place], [address], 01/09/2022 08:17:41 01/09/20 22 01/09/2022 SEDIM ENTAT ION RATE- WESTE RGREN sedimentatio n rate-westerg melyssa 8 mm/HR 0-15 Not Available [facility] ([facility]) [address] [facility], [place], [address], 01/09/2022 08:17:42 01/09/20 22 01/09/2022 CBC, PLATE LET, NO DIFFE RENTI AL WBC 6.0 x10e3 /uL 3.4-10 .8 Not Available [facility] ([facility]) [address] [facility], [place], [address], 01/09/2022 08:17:42 01/09/20 22 01/09/2022 CBC, PLATE LET, NO DIFFE RENTI AL RBC 4.90 x10e6 /uL 4.14-5 .80 Not Available [facility] ([facility]) [address] [facility] [place], [address], 01/09/2022 08:17:42 01/09/20 22 01/09/2022 CBC, PLATE LET, NO DIFFE RENTI AL hemoglobin 14.4 g/dL 13.0-1 7.7 Not Available [facility] ([facility]) [address] [facility] [place], [address], 01/09/2022 08:17:42 01/09/20 22 01/09/2022 CBC, PLATE LET, NO DIFFE RENTI AL hematocrit 42.2 % 37.5-5 1.0 Not Available [facility] ([facility]) [address] [facility], [place], [address], 01/09/2022 08:17:42 01/09/20 22 01/09/2022 CBC, PLATE LET, NO DIFFE RENTI AL MCV 86 fL 79-97 Not Available [facility] ([facility]) [address] [facility], [place], [address], 01/09/2022 08:17:42 01/09/20 22 01/09/2022 CBC, PLATE LET, NO DIFFE RENTI AL MCH 29.4 pg 26.6-3 3.0 Not Available [facility] ([facility]) [address] [facility], [place], [address], 01/09/2022 08:17:42 01/09/20 22 01/09/2022 CBC, PLATE LET, NO DIFFE RENTI AL MCHC 34.1 g/dL 31.5-3 5.7 Not Available [facility] ([facility]) [address] [facility], [place], [address], 01/09/2022 08:17:42 01/09/20 22 01/09/2022 CBC, PLATE LET, NO DIFFE RENTI AL RDW 13.2 % 11.6-1 5.4 Not Available [facility] ([facility]) [address] [place], [address], 01/09/2022 08:17:42 01/09/2001/09/2022 CBC, PLATE LET, NO DIFFE RENTI AL platelets 316 x10e3 /uL 150-45 0 Not Available [facility] ([facility]) [address] [place], [address], 01/09/2022 08:17:42 01/09/20 22 01/09/2022 VITAM IN D, 25-HY DROXY vitamin D, 25-hydroxy 37.2 NG/mL 30.0-1 00.0 Vitam in D defic iency has been defin ed by the Insti tute of Medic ine and an Endoc rine Socie ty pract ice guide line as a level of serum 25-OH vitam in D less than 20 ng/mL (1,2) . The Endoc rine Socie ty went on to furth er defin e vitam in D insuf ficie ncy as a level betwe en 21 and 29 ng/mL (2). 1. IOM (Inst itute of Medic ine). 2010. Dieta ry refer ence intak es for calci um and D. Fernando hamilton [place]: [facility] [employer] . 2. Pipo greer [place], Keiry mccabe [place], Nory off-F errar i BAIN, et al. Evalu ation , treat ment, and preve ntion of vitam in D defic iency : an Endoc rine Socie ty clini makenzie pract ice guide line. JCEM. 2010; 96(7) :1911 -30. Not Available [facility] ([facility]) [address] [facility], [place], [address], 01/09/2022 08:17:43 02/15/20 22 02/14/2022 XR, lumba r spine No observ ation record ed. [facility] [address] [place], [address], 02/17/2022 17:11:07 02/15/20 22 02/14/2022 XR, sinus es, paran pippa No observ ation record ed. [email or web address] [facility] [address] [place], [address], 02/17/2022 17:11:08 05/06/19 23 04/28/2022 trans -thor acic echoc ardio gram (TTE) (PROC ) No observ ation record ed. [email or web address] Not Available 2022 18:17:16 05/06/19 23 04/28/2022 exerc ise stres s test No observ ation record ed. [facility] Not Available 2022 18:17:42 05/20/19 23 04/28/2022 cardi ac monit or No observ ation record ed. [email or web address] [facility] [address], [place], [address], 05/21/2022 09:37:52 05/20/19 23 04/28/2022 exerc ise stres s test No observ ation record ed. [email or web address] [facility] [address], [place], [address], 05/21/2022 09:38:16 05/20/19 23 04/28/2022 trans -thor acic echoc ardio gram (TTE) (PROC ) No observ ation record ed. [email or web address] [facility] [address], [place], [address], 05/21/2022 09:38:29 01/01/20 23 12/31/2022 XR, chest No observ ation record ed. [address] [place], [address], 01/15/2023 18:10:22 03/27/20 23 03/27/2023 XR, cervi makenzie spine , 2 or 3 view No observ ation record ed. [facility] [address] [place], [address], 03/30/2023 14:07:09 05/06/19 24 12/15/2022 home sleep testi ng (PROC ) No observ ation record ed. [email or web address] Not Available 2023 09:51:04 02/25/20 24 02/25/2024 CT, abdom en + pelvi s, w/ contr ast No observ ation record ed. [place] [address], [place], [address], 02/26/2024 10:40:57 Result Notes None recorded. Problems Name Problem SNOMED Code Status Onset Date Resolution Date Notes Provider Name and Address Organization Details Recorded Time Rectal hemorrhag e 87836843 Active 2019 Not Available [facility] 1 12:08:18 Right upper quadrant pain 086275174 Active 2019 Not Available [facility] 1 12:08:18 Right lower quadrant pain 511735863 Active 2020 At level of umbilicus Not Available [facility] 1 12:08:18 External hemorrhoi ds 53625678 Active 2020 Not Available [facility] 1 12:08:18 Low back pain 164822009 Active 2020 Not Available [facility] 1 12:08:18 Large prostate 010822373 Active 2020 Not Available [facility] 1 12:08:18 Lower urinary tract symptoms 408712089 Active 2020 Not Available [facility] 1 12:08:18 History of SARS-CoV- 2 12507322975 3998163 Active 2021 Piedad York MD Attn: Accounting ,[address] [place], [place], [address] [place] [address] , [facility] 2 15:16:17 Loss of sense of smell 98434188 Active 2021 Piedad York MD Attn: Accounting ,[address] [place], [place], [address] [place] [address] , [place] - [place] 2 15:16:50 Loss of taste 20341184 Active 2021 Piedad York MD Attn: Accounting ,[address] [place], [address] , [facility] 2 15:17:52 Swelling 05636010 Active 2021 Left axilla Piedad York MD Attn: Accounting ,[address] [place], [place], [address] [place] [address] , [facility] 2 15:19:51 Nausea present 125643789 Active 2021 Piedad York MD Attn: Accounting ,[address] [facility], [place], [address] , [facility] - [facility] 2 15:21:12 Backache 580681904 Active 2021 Piedad York MD Attn: Accounting ,[address] [facility], [place], [address] , [facility] 2 15:24:16 Congestio n of nasal sinus 42048934 Active 2021 Piedad York MD Attn: Accounting ,[address] [facility], [place], [address] , [facility] 2 16:16:51 Atypical chest pain 004834712 Active 2021 Piedad York MD Attn: Accounting ,[address] [place], [address] , [facility] 2 16:18:04 Sleep disorder 81078749 Active 2021 Piedad York MD Attn: Accounting ,[address] [place], [address] , [facility] 2 16:31:04 Notes:Some problems listed i n Documents: #[id number], #[id number] could not be added to this patient's chart. Please review these documents and add these problems to the patient's chart manually as needed. Problem Notes None recorded. Procedures Surgical History Date Name Laterality Status Provider Name and Address Organization Details Recorded Time 9 Appendectomy completed Paula Dominguez MA [place] [facility] 10/19/2019 16:34:11 Imaging Results None recorded. Procedure Notes None recorded. Medical Equipment None Reported. Allergies No known drug allergies Medications Name Sig Start Date Stop Date Status Note LastModified by Organization Details LastModified Time cyclobenzap rine 10 mg tablet TAKE 1 TABLET ORAL ROUTE EVERY 8 HOURS active Not Available Not Available No t Available Colace 100 mg capsule Take 1 capsule every day by oral route. 01/08 completed Not Available Not Available Not Available azithromyci n 250 mg tablet 01/08 completed Not Available Not Available Not Available ondansetron HCl 4 mg tablet TAKE 1 TABLET BY MOUTH EVERY 8 HOURS 01/08 completed Not Available Not Available Not Available dicyclomine 20 mg tablet TAKE 1 TABLET BY MOUTH 4 TIMES A DAY FOR 7 DAYS 01/08 completed Not Available Not Available Not Available erythromyci n 5 mg/gram (0.5 %) eye ointment APPLY TO THE AFFECTED EYE(S) EVERY 8 HOURS active Not Available Not Available No t Available ferrous sulfate 325 mg (65 mg iron) tablet Take 1 tablet every day by oral route. 10/18 completed Not Available Not Available Not Available lidocaine 5 % topical patch APPLY 1 PATCH TOPICAL ROUTE EVERY 24 HOURS LEAVE ON MOST PAINFUL AREA FOR UP TO 12 HRS active Not Available Not Available No t Available omeprazole 20 mg capsule,del ayed release TAKE 1 CAPSULE BY MOUTH EVERY DAY BEFORE A MEAL active Not Available Not Available No t Available ondansetron 4 mg disintegrat ing tablet PLACE 1 TABLET ON TOP OF TONGUE AND ALLOW TO DISSOLVE 3 TIMES A DAY NEEDED active Not Available Not Available No t Available Suprep Bowel Prep Kit 17.5 gram-3.13 gram-1.6 gram oral solution MIX AND DRINK 1 BOTTLE AT 6 PM THE NIGHT BEFORE PROCEDURE , AND REPEAT 4 HOURS BEFORE PROCEDURE 07/23 completed Not Available Not Available Not Available Vitals Date Recorded Body height Body mass index (BMI) Body weight Body temperature Respiratory rate Oxygen saturation Oxygen saturation in Arterial blood by Pulse oximetry Heart rate Systolic And Diastolic Provider Name and Address Organization Details Last Updated DateTime 4 185.42 cm 28.1 kg/m2 10944.1 7 g 98 [degF] 18 /min 96 % 96 % 96 /min 124/84 mm[Hg] Lenore Vargas LPN [place] [facility] 4 15:28:57 Date Recorded Body height Body mass index (BMI) Body weight Body temperature Respiratory rate Oxygen saturation Oxygen saturation in Arterial blood by Pulse oximetry Heart rate Systolic And Diastolic Provider Name and Address Organization Details Last Updated DateTime 3 185.42 cm 26.7 kg/m2 17159.6 6 g 98.9 [degF] 18 /min 98 % 98 % 68 /min 148/82 mm[Hg] Lenore TRES Vargas [facility] 3 12:16:43 Date Recorded Body height Body mass index (BMI) Body weight Body temperature Heart rate Oxygen saturation Oxygen saturation in Arterial blood by Pulse oximetry Systolic And Diastolic Provider Name and Address Organization Details Last Updated DateTime 2 185.42 cm 25.7 kg/m2 56915.5 1 g 98.1 [degF] 83 /min 98 % 98 % 112/80 mm[Hg] Sherry James MA [facility] 2 14:29:50 Date Recorded Body height Body mass index (BMI) Body weight Body temperature Heart rate Oxygen saturation Oxygen saturation in Arterial blood by Pulse oximetry Systolic And Diastolic Provider Name and Address Organization Details Last Updated DateTime 2 185.42 cm 26 kg/m2 06020.7 g 98.1 [degF] 71 /min 96 % 96 % 128/70 mm[Hg] Sherry James MA [facility] 2 15:45:56 Date Recorded Body height Respiratory rate Body mass index (BMI) Body weight Body temperature Pain severity - 0-10 verbal numeric rating [Score] - Reported Oxygen saturation Oxygen saturation in Arterial blood by Pulse oximetry Heart rate Systolic And Diastolic Provider Name and Address Organization Details Last Updated DateTime 2 185.42 cm 18 /min 26.4 kg/m2 44346.1 9 g 97.2 [degF] 0 97 % 97 % 91 /min 122/76 mm[Hg] Jennifer Smith [facility] 2 14:23:14 Social History Question Answer Notes LastModified by Organizat ion Details LastModified Time Tobacco Smoking Status Former Smoker Sherry James MA [facility], [facility] 01/08/2022 14:30:19 Do You Have An Advance Directive? No Information n ot available 03/07/2022 In The 14 Days Before Symptom Onset, Have You Had Close Contact With A Laboratory-confirm ed COVID-19 While That Case Was Ill? No Information n ot available 03/07/2022 In The 14 Days Before Symptom Onset, Have You Had Close Contact With A Person Who Is Under Investigation For COVID-19 While That Person Was Ill? No Information not available 03/07/2022 Have You Been To An Area Known To Be High Risk For COVID-19? No Information not available 03/07/2022 Do You Have A Medical Power Of [place]? No Information not available 03/07/2022 What Was The Date Of Your Most Recent Tobacco Screening? 05/06/2023 [email or web address] Information not available 05/06/2023 How Much Tobacco Do You Smoke? 1 PPD Information not available 07/23/2020 On What Date Was Tobacco Cessation Counseling Provided? 02/13/2022 Information not available 02/13/2022 How Many Years Have You Smoked Tobacco? 17 Information not available 10/19/2019 Sex: Unknown Functional Status Question Answer Note LastModified by Organizat ion Details LastModified Time Do you or have you ever used e-cigarettes or vape? Never used electronic cigarettes Information not available 10/19/2019 Mental Status None recorded. Family History Nothing Reported. Medical History Condition Response GI Problems Y Past Encounters Encounter ID Performer Location Encounter Start Date Encounter Closed Date Diagnosis/Indication Diagnosis SNOMED-CT Code Diagnosis ICD10 Code Diagnosis IMO Codes Diagnosis Note [id number] MD Amisha Giang (Adult Med) [address] [place] [phone] 0 08/03/2019 10:13:48 08/03/2019 11:12:04 Rectal hemorrhage 00568267 K62.5 Pt to go back to ED if dizziness occurs or other sx increase [id number] MD Amisha Giang (Adult Med) [address] [place] [address] 0 10/19/2019 16:30:11 10/25/2019 10:42:39 Right upper quadrant pain 377892149 R10.11 Appears localized [id number] MD Amisha Giang (Adult Med) [address] [place] [phone] 0 07/23/2020 11:31:27 07/24/2020 14:12:04 Right lower quadrant pain 700736201 R10.31 External hemorrhoids 239 66808 K64.4 Large prostate 165530372 N40.[address] scan. Refer to urology and check Psa Lower urin hoa tract symptoms 820663399 R39.9 Low back pain 748898379 M54.5 [id number] Piedad York MD [facility] (Adult Med) [address] [place] [phone] 01/08/2022 14:06:37 01/09/2022 11:15:58 Nausea present 802781216 R11.0 Hold NSAID use Backache 413486248 M54.9 Loss of se nse of smell 72343596 R43.0 Loss of taste 54482350 R 43.2 History of SARS-CoV-2 29 32086318 07571597 Z86.16 [id number] Piedad York MD [facility] (Adult Med) [address] [place] [phone] 0 02/13/2022 15:39:48 02/18/2022 11:46:30 Atypical chest pain 899935553 R07.89 Loss of se nse of smell 37427901 R43.0 Sleep disorder 42800951 G47.9 [id number] Reza Quezada MD [facility] [address] [place] [address] 2 03/07/2022 14:04:15 03/10/2022 07:34:21 Sleep disorder 45212716 G47.9 Ex-smoker 6448147 Z87.89 1 Atypical chest pain 1025 43499 R07.89 [id number] Reza Quezada MD [facility] [address] [place] [phone] 2 12/03/2022 11:53:17 12/04/2022 08:30:07 Sleep disorder 81871723 G47.9 HSTdiscuss ed sleep hygiene Gastroesop hageal reflux disease 329763672 K21.9 omeperazol e Obstructiv e sleep apnea syndrome 63485474 G47.33 [id number] Reza Quezada MD [facility] [address] [place] [address] 2 05/06/2023 15:21:32 05/11/2023 13:53:00 Sleep disorder 74384592 G47.9 discussed sleep hygiene Gastroesop hageal reflux disease 663577894 K21.9 omeperazol e Obstructiv e sleep apnea syndrome 94443285 G47.33 Health Concerns Section Related Observation LastModified by Organization Rubina ls LastModified Time None Recorded Concern Status LastModified by Organization Details LastModified Time None Recorded Advance Directives Directive N: Payers Insurance Date Sequence Insurance Name Policy Number Policy Jean Covered Member ID Jean Member ID Guarantor Name 05/12/2022 1 [employer] [place] Barb [facility] ON OR AFTER 03/20/2020 (MEDICAID REPLACEMENT - HMO) Jamison Cole [id number] Jamison Cole 05/12/2022 1 [facility] (MEDICAID HMO) Jamison Rigginsnis [id number] Jamisondonna Cole Notes Date Note Type Note Provider Name and Address Organization Details Recorded Time 01/08/2022 text/html Quit smoking about three months ago. Lost smell and taste about two weeks after testing positive for Sars-CoV-2. Also noticed swelling under left axilla and upper jaw, He has a burning sensation in his lower back. Has awaken with nausea for the past four days but had bile stained for the first two days. No fever or chills Piedad York MD Attn: Accounting,[address] [place], [address], [facility] 01/08/2022 15:31:49 02/13/2022 text/html Difficulty breathing through right nostril for the past six months. Sharp shooting pain for the past two weeks occuring randomly throughout the day. His has noted jerking while he is asleep. This recurs every 6 mins. No obvious apneic smells. Drinks lots of coffee during the day. 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 smoked 2 PPD since age 16steady weightno cough PMH: tobacco use, atypical chest pain, congestion of nasal sinus, hx of COVID-19, GERD CTA chest PE protocol w/contrast 09/11/21- [facility]: IMPRESSIONNo PEtrace bilateral pleural effusionsMild emphysema Reza Quezada MD [address], [place], [address], [place] [facility] 03/07/2022 14:41:06 12/03/2022 text/html ROS as noted in the [facility] sleep disorderpolysomnograph y, diagnostic (PROC)ex-smokeratypica l chest paincould not complete sleep study due to equipmement malfunction+snoring+ED S Reza Quezada MD [address], [place], [address], [place] [facility] 12/03/2022 12:31:29 05/06/2023 text/html ROS as noted in the [facility] sleep disorder ex-smoker atypical chest pain HST done in 11/2022 from [facility] showed an AHI of 5 +snoring +EDS+GERD Reza Quezada MD [address], [place], [address], [place] [facility] 05/06/2023 15:40:06
== END 2025-02-14 17:40 | disposition home or self-care (01) ==
PROVIDERS: Emergency Provider Emergency Medicine; PCP Nurse Practitioner Adult Health
DX: N41.9 Inflammatory disease of prostate, unspecified (principal)
CPT/HCPCS: 81003; 87491; 87591; 96372; 99283; A9270; J0696; J2003